=== PATIENT | female | born 1950 | race Caucasian/White ===

== ENCOUNTER → 2017-10-28 07:39 | Outpatient (CLI) | payer MEDICARE, OTHER, SELFPAY ==
[2017-10-28 10:38] LABS: Absolute Lymphocyte Count 1.99 X10^3/ul (0.83-4.51); Basophil# 0.07 X10^3/uL; Basophil% 1.5 % (0-1); Eosinophils% 6.3 % (0-5); Hematocrit 43.6 % (37-47); Hemoglobin 14.1 g/dl (12.0-15.0); Lymphocyte # 1.99 X10^3/ul (4.0); Lymphocyte % 41.9 % (19-41); Mean Corp Hgb Conc 32.3 g/gl (32-36); Mean Corpuscular Hgb 30.7 pg (27.0-32.0); Mean Platelet Vol. 11.1 fl (6.2-12.0); Monocyte# 0.42 X10^3/uL; Monocyte% 8.8 % (0-10); Neutrophil # 1.96 X10^3/uL (2.7-7.7); Neutrophil % 41.3 % (47-70); POSITIVE COUNT NO; POSITIVE DIFFERENTIAL NO; POSITIVE MORPHOLOGY NO; Platelet Count 229 K/mm3 (150-450); RBC Distribution Width CV 12.8 % (11.6-14.6); RBC Distribution Width SD 43.9 fl (35.1-43.9); Red Blood Count 4.59 M/mm3 (4.2-5.4); White Blood Count 4.8 K/mm3 (4.4-11.0)
[2017-10-28 10:48] LABS: Anion Gap 8 (5-15); BUN 24 mg/dL (7-18); Calcium,Total 9.2 mg/dL (8.5-10.1); Chloride 104 mmol/L (98-107); Cholesterol 222 mg/dL (200); Creatinine, Serum 0.89 mg/dL (0.55-1.02); EST Glomerular Filtration Rate 67 mL/min (>60); Est Glom Filt Rate - Afr Amer 81 mL/min (>60); Glucose 90 mg/dL (70-110); High Density Lipoprotein 62 mg/dL; Sodium Level 141 mmol/L (136-145); Thyroid Stim Hormone (TSH) 2.67 uIU/mL (0.358-3.74); Triglycerides 131 mg/dL; Very Low Density Lipoprotein 26 mg/dL (5-40)
[2017-10-28 11:10] LABS: Vitamin D,25 Hydroxy 23.1 ng/mL
== END ==
PROVIDERS: Family Provider Family Medicine; PCP Family Medicine; Visit Provider Family Medicine
DX: G25.0 Essential tremor (principal); E78.00 Pure hypercholesterolemia, unspecified; R53.83 Other fatigue; E55.9 Vitamin D deficiency, unspecified
CPT/HCPCS: 36415; 80048; 80061; 82306; 84443; 85025

== ENCOUNTER → 2019-08-09 | Outpatient (CLI) | payer MEDICARE, OTHER, SELFPAY ==
[2019-08-09 10:30] LABS: Absolute Lymphocyte Count 1.82 X10^3/uL (0.83-4.51); Absolute Neutrophil Count 1.9 X10^3/uL (2.0-7.7); Basophil# 0.06 X10^3/uL; Basophil% 1.4 % (0-1); Eosinophil# 0.24 X10^3/uL; Eosinophils% 5.5 % (0-5); Hematocrit 42.9 % (37-47); Hemoglobin 13.7 g/dL (12.0-15.0); Lymphocyte # 1.82 X10^3/ul (4.0); Lymphocyte % 41.6 % (19-41); Mean Corp Hgb Conc 31.9 g/dL (32-36); Mean Corpuscular Hgb 29.5 pg (27.0-32.0); Mean Corpuscular Volume 92.5 fL (81-99); Mean Platelet Vol. 10.8 fl (6.2-12.0); Monocyte# 0.33 X10^3/uL; Monocyte% 7.6 % (0-10); NRBC Flagged by Analyzer 0 % (0-5); Neutrophil # 1.91 X10^3/uL (2.7-7.7); Neutrophil % 43.7 % (47-70); Platelet Count 212 K/mm3 (150-450); RBC Distribution Width CV 12.4 % (11.6-14.6); RBC Distribution Width SD 42.4 fl (35.1-43.9); Red Blood Count 4.64 M/mm3 (4.2-5.4); White Blood Count 4.4 K/mm3 (4.4-11.0)
[2019-08-09 10:54] LABS: Anion Gap 6 (5-15); BUN 20 mg/dL (7-18); BUN/Creat Ratio 21.7 RATIO (10-20); Calcium,Total 8.8 mg/dL (8.5-10.1); Chloride 106 mmol/L (98-107); Cholesterol 211 mg/dL (200); Creatinine, Serum 0.92 mg/dL (0.55-1.02); EST Glomerular Filtration Rate 64 mL/min (>60); Est Glom Filt Rate - Afr Amer 77 mL/min (>60); Glucose 90 mg/dL (74-106); High Density Lipoprotein 54 mg/dL; Potassium 4.1 mmol/L (3.5-5.1); Sodium Level 143 mmol/L (136-145); Thyroid Stim Hormone (TSH) 3.01 uIU/mL (0.358-3.74); Triglycerides 128 mg/dL; Very Low Density Lipoprotein 26 mg/dL (5-40)
[2019-08-09 12:04] LABS: Vitamin D,25 Hydroxy 55.4 ng/mL (29.95-100.01)
== END | disposition home or self-care (01) ==
LOC: MTLAB 07:53
PROVIDERS: Family Provider Family Medicine; PCP Family Medicine; Referring Provider Family Medicine; Visit Provider Family Medicine
DX: E55.9 Vitamin D deficiency, unspecified (principal); E78.00 Pure hypercholesterolemia, unspecified; R53.83 Other fatigue
CPT/HCPCS: 36415; 80048; 80061; 82306; 84443; 85025

== ENCOUNTER → 2020-09-30 07:27 | Outpatient (CLI) | payer MEDICARE, OTHER, SELFPAY ==
[2020-09-30 10:05] LABS: Vitamin D,25 Hydroxy 43.4 ng/mL
[2020-09-30 10:09] LABS: AST(SGOT) 18 U/L (15-37); Alanine Aminotransfer ALT/SGPT 23 U/L (13-56); Albumin, Serum 3.6 g/dL (3.2-5.0); Alkaline Phosphatase 79 U/L (45-117); Anion Gap 2 (5-15); BUN 18 mg/dL (7-18); BUN/Creat Ratio 20.7 RATIO (10-20); Calcium,Total 9.1 mg/dL (8.5-10.1); Chloride 107 mmol/L (98-107); Cholesterol 234 mg/dL (200); Creatinine, Serum 0.87 mg/dL (0.55-1.02); EST Glomerular Filtration Rate 68 mL/min (>60); Est Glom Filt Rate - Afr Amer 82 mL/min (>60); Globulin 3.7 g/dL (2.2-4.2); Glucose 87 mg/dL (74-106); High Density Lipoprotein 53 mg/dL; Potassium 4.2 mmol/L (3.5-5.1); Protein, Total 7.3 g/dL (6.4-8.2); Sodium Level 141 mmol/L (136-145); Triglycerides 128 mg/dL; Very Low Density Lipoprotein 26 mg/dL (5-40)
== END ==
PROVIDERS: PCP Family Medicine; Referring Provider Family Medicine; Visit Provider Family Medicine
DX: E78.00 Pure hypercholesterolemia, unspecified (principal); M85.80 Other specified disorders of bone density and structure, unspecified site
CPT/HCPCS: 36415; 80053; 80061; 82306

== ENCOUNTER → 2020-10-07 10:45 | Outpatient (CLI) | payer MEDICARE, OTHER, SELFPAY ==
--- NOTE | 2020-10-07 10:50 | BD_ITS ---
STUDY: DUAL ENERGY X-RAY ABSORPTIOMETRY / DXA REASON FOR EXAM: Female, 70 years old. 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 COMPARISON: Comparison is made with prior study dated 04/02/2020. FINDINGS: Lumbar Spine (L1-L4): g/cm2 (1.184) / T-score (0.2) / Z-score (1.9) Findings are suggestive of normal bone density with a low fracture risk. Left Femur Total: g/cm2 (0.963) / T-score (-0.4) / Z-score (1.2) Left Femoral Neck: g/cm2 (0.914) / T-score (-0.9) / Z-score (0.9) Right Femur Total: g/cm2 (1.003) / T-score (0.0) / Z-score (1.5) Right Femoral Neck: g/cm2 (0.874) / T-score (-1.2) / Z-score (0.6) The T-Scores on the most recent prior examination were: Lumbar Spine (L1-L4): There has been improvement of bone density since the previous examination. Left Femur Total: which represents a worsening of 10.6%. Right Femur Total: which represents a worsening of 9.6%. BD/Dexa Bone Density Study IMPRESSION: The patient is considered osteopenic as outlined below according to World Franklin Organization (WHO) criteria with a low fracture risk. There has been worsening of bone density since the previous examination. Reference Information: The T-score is the number of standard deviations above or below the standard which is normal for young adults at their peak bone mineral density. The World Health Organization (WHO) interprets the T-scores as follows: Above -1 Normal bone density Between -1 and -2.5 Osteopenia Equal to / or below -2.5 Osteoporosis As a practical clinical guideline, osteopenia may be graded as follows: Mild -1 through -1.5 Moderate -1.6 through -2.0 Severe -2.1 through -2.4 The Z-score is the number of standard deviations above or below age-matched controls. A Z-score of less than -1.5 would be considered abnormal. References: 1. NIH Osteoporosis and Related Bone Diseases www osteo.org 2. International Society for Clinical Densitometry www iscd.org 3. National Osteoporosis Foundation www nof.org Electronically Signed: Randy Marie, at 14:42 EST , Service support ,
== END ==
PROVIDERS: PCP Family Medicine; Referring Provider Family Medicine; Visit Provider Family Medicine
DX: M85.80 Other specified disorders of bone density and structure, unspecified site (principal); Z78.0 Asymptomatic menopausal state
CPT/HCPCS: 77080

== ENCOUNTER → 2021-06-01 07:30 | Outpatient (CLI) | payer MEDICARE, SELFPAY ==
[2021-06-01 10:45] LABS: AST(SGOT) 26 U/L (15-37); Alanine Aminotransfer ALT/SGPT 21 U/L (13-56); Albumin, Serum 3.5 g/dL (3.2-5.0); Alkaline Phosphatase 78 U/L (45-117); Anion Gap 5 (5-15); BUN 17 mg/dL (7-18); BUN/Creat Ratio 19.4 RATIO (10-20); Chloride 107 mmol/L (98-107); Cholesterol 217 mg/dL (200); Creatinine, Serum 0.88 mg/dL (0.55-1.02); EST Glomerular Filtration Rate 67 mL/min (>60); Est Glom Filt Rate - Afr Amer 81 mL/min (>60); Globulin 3.5 g/dL (2.2-4.2); Glucose 86 mg/dL (74-106); High Density Lipoprotein 54 mg/dL; Potassium 3.9 mmol/L (3.5-5.1); Sodium Level 141 mmol/L (136-145); Triglycerides 139 mg/dL; Very Low Density Lipoprotein 28 mg/dL (5-40)
== END ==
PROVIDERS: PCP Family Medicine; Referring Provider Family Medicine; Visit Provider Family Medicine
DX: E78.00 Pure hypercholesterolemia, unspecified (principal)
CPT/HCPCS: 36415; 80053; 80061

== ENCOUNTER → 2021-08-24 10:21 | Outpatient (CLI) | payer MEDICARE, SELFPAY ==
--- NOTE | 2021-08-24 10:25 | RAD_ITS ---
STUDY: X-RAY CHEST REASON FOR EXAM: Female, 71 years old. Cough TECHNIQUE: PA and lateral views of the chest. COMPARISON: 07/04/2014 FINDINGS: The lungs are clear and expanded. There is no demonstrated pleural abnormality. Normal size heart. Normal mediastinum and noa. Normal visualized pulmonary arteries. Normal visualized aortic arch and descending thoracic aorta. Normal visualized thoracic spine. Normal visualized ribs, clavicles, and shoulders. There is no demonstrated abnormality of the visualized soft tissue structures of the upper abdomen. RAD/Chest PA and Lateral IMPRESSION: Normal x-ray examination of the chest. Electronically Signed: Sukhjinder Leonard MD at 16:50 EDT Tel , Service support ,
== END ==
PROVIDERS: PCP Family Medicine; Referring Provider Family Medicine; Visit Provider Family Medicine
DX: K21.9 Gastro-esophageal reflux disease without esophagitis (principal)
CPT/HCPCS: 71046

== ENCOUNTER → 2021-10-01 07:01 | Outpatient (CLI) | payer MEDICARE, SELFPAY ==
[2021-10-01 10:32] LABS: Absolute Lymphocyte Count 1.96 X10^3/uL (0.83-4.51); Absolute Neutrophil Count 2.4 X10^3/uL (2.0-7.7); Basophil# 0.06 X10^3/uL; Basophil% 1.1 % (0-1); Eosinophil# 0.32 X10^3/uL; Hematocrit 43.4 % (37-47); Lymphocyte # 1.96 X10^3/ul (0.83-4.51); Lymphocyte % 36.6 % (19-41); Mean Corp Hgb Conc 32.3 g/dL (32-36); Mean Corpuscular Hgb 29.9 pg (27.0-32.0); Mean Corpuscular Volume 92.5 fL (81-99); Mean Platelet Vol. 10.8 fl (6.2-12.0); Monocyte# 0.64 X10^3/uL; Monocyte% 11.9 % (0-10); NRBC Flagged by Analyzer 0 % (0-5); Neutrophil # 2.36 X10^3/uL (2.7-7.7); Platelet Count 238 K/mm3 (150-450); RBC Distribution Width CV 12.2 % (11.6-14.6); RBC Distribution Width SD 41.7 fl (35.1-43.9); Red Blood Count 4.69 M/mm3 (4.2-5.4); White Blood Count 5.4 K/mm3 (4.4-11.0)
[2021-10-01 10:55] LABS: ALB/GLOB Ratio 0.9 RATIO (0.9-2.4); AST(SGOT) 24 U/L (15-37); Alanine Aminotransfer ALT/SGPT 26 U/L (13-56); Albumin, Serum 3.4 g/dL (3.2-5.0); Alkaline Phosphatase 84 U/L (45-117); Anion Gap 7 (5-15); BUN 19 mg/dL (7-18); BUN/Creat Ratio 20.2 RATIO (10-20); Calcium,Total 9.2 mg/dL (8.5-10.1); Chloride 105 mmol/L (98-107); Cholesterol 215 mg/dL (200); Creatinine, Serum 0.94 mg/dL (0.55-1.02); EST Glomerular Filtration Rate 62 mL/min (>60); Est Glom Filt Rate - Afr Amer 75 mL/min (>60); Globulin 3.9 g/dL (2.2-4.2); Glucose 89 mg/dL (74-106); High Density Lipoprotein 52 mg/dL; Potassium 4.2 mmol/L (3.5-5.1); Protein, Total 7.3 g/dL (6.4-8.2); Sodium Level 141 mmol/L (136-145); Thyroid Stim Hormone (TSH) 2.25 uIU/mL (0.358-3.74); Triglycerides 117 mg/dL; Very Low Density Lipoprotein 23 mg/dL (5-40)
== END ==
PROVIDERS: Referring Provider Family Medicine; Visit Provider Family Medicine
DX: E78.00 Pure hypercholesterolemia, unspecified (principal)
CPT/HCPCS: 36415; 80053; 80061; 84443; 85025

== ENCOUNTER → 2021-10-14 17:40 | Outpatient (CLI) | payer MEDICARE, SELFPAY | PROVIDERS: Visit Provider Nurse Practitioner Family | DX: B37.3 Candidiasis of vulva and vagina (principal) | CPT/HCPCS: 87070; 87205 ==

== ENCOUNTER 2021-11-25 18:27 | Outpatient (CLI) | payer MEDICARE, SELFPAY | END 2021-11-25 23:59 | disposition short-term general hospital (02) | PROVIDERS: Referring Provider Nurse Practitioner Family; Visit Provider Nurse Practitioner Family | DX: U07.1 COVID-19 (principal) | CPT/HCPCS: 87635; U0003; U0005 ==

== ENCOUNTER 2022-02-16 17:40 | Outpatient (CLI) | payer MEDICARE, SELFPAY | END 2022-02-16 23:59 | disposition home or self-care (01) | PROVIDERS: Visit Provider Family Medicine | DX: B34.9 Viral infection, unspecified (principal) | CPT/HCPCS: 87635; U0003; U0005 ==

== ENCOUNTER → 2024-01-03 | Outpatient (CLI) | payer MEDICARE, SELFPAY ==
--- NOTE | 2024-01-03 13:08 | ECHOD_ITS ---
Reason For Study: Abnormal EKG Procedure This was a 2D Doppler, Color Flow transthoracic echocardiogram. Exam performed in department. Left Ventricle Normal LV size. Left ventricular systolic function is normal. The estimated ejection fraction is 65 %. Normal diastology for age. No regional wall motion abnormalities noted. Right Ventricle Normal RV size. Normal systolic function. Atria The left and right atria are normal. Mitral Valve The mitral valve is structurally normal. No prolapse or stenosis seen. Trivial mitral valve insufficiency. Tricuspid Valve Normal tricuspid valve. Trivial tricuspid valve insufficiency. Unable to estimate RV systolic pressure due to insufficient tricuspid regurgitant envelope. Aortic Valve Trisinus/trileaflet aortic valve. Pulmonic Valve Normal pulmonic valve. Mild (1+) pulmonic valve insufficiency. Great Vessels Normal aortic root. Pericardium/Pleural No pericardial effusion. MMode/2D Measurements & Calculations LVIDd: 4.3 cm IVSd: 0.92 cm Ao root diam: 3.1 cm LVIDs: 2.7 cm LVPWd: 0.94 cm LA dimension: 3.8 cm RVDd: 3.2 cm FS: 37.2 % LAV(MOD-bp): 40.0 ml LVAd ap4: 21.5 cm2 SV(MOD-sp4): 32.6 ml LAV(MOD-bp) Indexed: 23.8 ml/m2 LVLd ap4: 6.9 cm LAV(MOD-sp2): 40.0 ml EDV(MOD-sp4): 55.0 ml LAV(MOD-sp4): 37.4 ml EDV(sp4-el): 56.8 ml LVAs ap4: 12.0 cm2 LVLs ap4: 5.5 cm ESV(MOD-sp4): 22.4 ml ESV(sp4-el): 22.1 ml EF(MOD-sp4): 59.3 % EF(sp4-el): 61.1 % SV(sp4-el): 34.7 ml LA A4 area: 14.7 cm2 RA A4 area: 12.2 cm2 TAPSE: 1.9 cm Time Measurements MV dec time: 0.20 sec Doppler Measurements & Calculations MV E max anderson: 73.9 cm/sec Lat Peak E' Anderson: 7.6 cm/sec Med Peak E' Anderson: 6.9 cm/sec MV A max anderson: 80.7 cm/sec E/E' lat: 9.8 E/E' med: 10.6 MV E/A: 0.92 MV V2 max: 121.4 cm/sec MV P1/2t max anderson: 99.0 cm/sec Ao V2 max: 121.6 cm/sec MV max P.9 mmHg MV P1/2t: 77.7 msec Ao max P.9 mmHg MV V2 mean: 59.9 cm/sec MV dec slope: 373.3 cm/sec2 Ao V2 mean: 81.3 cm/sec MV mean P.8 mmHg Ao mean P.1 mmHg MV V2 VTI: 34.1 cm MVA(P1/2t): 2.8 cm2 Ao V2 VTI: 30.0 cm AV (velocity ratio): 0.77 LV V1 max: 93.3 cm/sec PA V2 max: 82.1 cm/sec LV V1 max P.5 mmHg LV V1 mean P.8 mmHg LV V1 mean: 61.4 cm/sec LV V1 VTI: 23.1 cm ECHO/Echo Complete Interpretation Summary The estimated ejection fraction is 65 %. Normal diastology for age. Mild (1+) pulmonic valve insufficiency. Compared to prior study, there is no significant change. Ordering Physician: Isabela Perez Referring Physician: Jamie Montez M.D. Performed By: Houston Ledezma RCS
== END | disposition home or self-care (01) ==
PROVIDERS: Referring Provider Internal Medicine Cardiovascular Disease; Visit Provider Internal Medicine Cardiovascular Disease
DX: R94.31 Abnormal electrocardiogram [ECG] [EKG] (principal); R07.9 Chest pain, unspecified
CPT/HCPCS: 93306

== ENCOUNTER 2024-06-02 12:47 | Emergency (ER) | payer MEDICARE, SELFPAY ==
[2024-06-02 12:48] VITALS: BP 164/64; PULSE 55; RESP 16; TEMP 36.1; O2SAT 100; BMI 28.0
--- NOTE | 2024-06-02 13:05 | RAD_ITS ---
HISTORY: sciatica. TECHNIQUE: XR Spine Lumbar 2 or 3 Views. COMPARISON: CT 08/19/2017. FINDINGS: VERTEBRAE: Vertebral body heights preserved. Degenerative changes of the posterior elements. ALIGNMENT: No significant anterior or posterior subluxation. Chronic mild dextroscoliosis INTERVERTEBRAL DISCS: Degenerative changes with intervertebral disc space narrowing at multiple levels. RAD/Lumbar Spine 2 or 3 Views IMPRESSION: No acute fracture or dislocation identified in the lumbar spine. Multilevel degenerative change. Electronically Signed: Nichole Iyer MD at 13:55 EDT ,
--- NOTE | 2024-06-02 13:05 | RAD_ITS ---
HISTORY: pain. TECHNIQUE: XR Knee Complete 4 Views or More. COMPARISON: 08/25/2009. FINDINGS: BONES : No acute fracture identified. Mineralization unremarkable. Small degenerative osteophytes. JOINTS: No dislocation. Mild joint effusion. RAD/Knee 4 or More Views IMPRESSION: No acute fracture or dislocation identified right knee. Mild degenerative change and joint effusion. Electronically Signed: Nichole Iyer MD at 13:50 EDT ,
--- NOTE | 2024-06-02 13:06 | EDS_ITS ---
HPI History of Present Illness Chief Complaint: Lower Extremity Injury Narrative Narrative: 73-year-old female presents with right knee and thigh pain posteriorly that she has had for the last few weeks. She relates history that initially, she was driving, and extended her foot/plantar flexed at and began having pain in the back of her knee. She saw primary care provider, who examined her knee, but did not think she had a fracture but probable muscle or tendon strain. She states t hat she saw her chiropractor and there was a raised sore area on her medial proximal tibia that was sore and swollen, but had gone down now. She is having continued pain that is more in her posterior thigh and more lateral that is sometimes worse with movement. No fevers or chills, no nausea or vomiting, no saddle anesthesia, no loss of bowel or bladder. She went to urgent care today and was sent to the emergency department for an x-ray of her right knee. She states that the primary care provider, Dr. Valadez, also suggested that if her pain worsen that she should have an x-ray. She denies any back pain. Advil makes it better. She presents from urgent care stating that she needs an x-ray of her right knee. [facility] Medical History Hx of melanoma of skin Abnormal EKG Memory disturbance Dryness of both ear canals Postnasal drip Intramural leiomyoma of uterus Actinic keratosis Osteopenia of multiple sites GERD (gastroesophageal reflux disease) Diffuse cystic mastopathy Chest pain Essential tremor Dyslipidemia Home Medications ?Medication ?Instructions ?Recorded ?Last Taken ?Type omega-3 fatty acids 300 mg capsule 1,000 mg PO QHS 07/04/14 Unknown History (Fish Oil) cholecalciferol (vitamin D3) 25 1,000 unit PO QHS 07/08/15 Unknown History mcg (1,000 unit) tablet (Vitamin D3) propranolol 80 mg capsule,24 80 mg PO QHS 11/03/23 Unknown History hr,extended release famotidine 10 mg tablet (Pepcid AC) 10 mg PO DAILY PRN 11/30/23 Unknown History Allergy/AdvReac Type Severity Reaction Status Date / Time No Known Allergies Allergy Verified 06/02/24 12:48 Family History Father Colon cancer Surgical History Hx of unilateral oophorectomy Hx of tubal ligation Social History Smoking Status: Never smoker alcohol intake: never substance use type: does not use caffeine: Yes Type: coffee Number of servings: 2 ROS ROS ED ROS Narrative Constitutional: No fever, no chills. HEENT: No sore throat. No neck pain. No loss of vision. No rhinorrhea. Cardiovascular: No chest pain. No palpitations. No pedal edema. Respiratory: No cough, no shortness of breath. Abdominal: No abdominal pain. No nausea. No vomiting. Genitourinary: No dysuria. No hematuria. Musculoskeletal: No myalgias. Right knee pain, right posterior thigh pain. Neurologic: No headaches. No dizziness. No lightheadedness. Skin: No rash. No change in color. Psychiatric: No depression. No anxiety. EXAM Physical Exam Narrative Exam Narrative: Afebrile. Vital signs noted. HEENT: Normocephalic. Atraumatic. PERRL, EOMI. Neck soft and supple. No point tenderness or step off. Cardiovascular: Regular rate and rhythm. No murmurs, rubs, or gallops appreciated. Respiratory: No tachypnea. Lungs clear to auscultation bilaterally. Gastrointestinal: Abdomen soft, nontender, with normoactive bowel sounds. No rebound or guarding. Neurological: Awake. Alert. Nonfocal, nonlateralizing. Straight leg raising negative bilaterally. Neurovascular intact right lower extremity with palpable dorsalis pedis pulse. Skin: No rash. Normal color. No pallor. Musculoskeletal: No pedal edema. Full range of motion extremities. Flexion extension right knee intact. Able to raise leg off bed without difficulty. Mild tenderness to palpation right sciatic notch. Const Vital Signs: 06/02/24 12:48 Temperature 96.9 F L Temperature Source Temporal Pulse Rate 55 L Respiratory Rate 16 Blood Pressure 164/64 H Blood Pressure Mean 97 Pulse Ox 100 Oxygen Delivery Method Room Air MDM MDM MDM Narrative Medical decision making narrative: The differential diagnosis is sciatica versus spinal stenosis. I have low suspicion for cauda equina because there are no red flag symptoms and history and physical does not support this. Additionally, I have low suspicion for deep venous thrombosis as there is no overt swelling, erythema, or risk factors. I discussed with her the diagnosis of sciatica and continued use of anti- inflammatories. I will obtain a right knee x-ray to rule out any fracture, and I will also add lumbar spine x-rays to look for DJD. I do not feel that she needs emergent MRI. X-rays will be done for baseline in the event that she needs physical therapy at future outpatient imaging. Of note, on examination, initially she had her telephone in her right back pocket. I do feel that this may be a cause of her symptoms and sciatica. She was told not to keep it in her back pocket on the right or the left as this may be aggravating her sciatic nerve. X-rays of the right knee and 4 views interpreted by myself independently shows small joint effusion but no evidence of acute fracture. There are mild degenerative changes. I reviewed the radiology report which confirms my independent interpretation. X-rays of the lumbar spine interpreted by myself independently shows no evidence of acute fracture. There is evidence of degenerative joint disease/degenerative disc disease. I reviewed the radiology report which also confirms my independent interpretation. At this point in time, I feel she be discharged to continue her [id number] medications. She was told she may need out patient imaging of her back or even physical therapy as I do think that she has more of a sciatica. She was told not to put her phone in her back pockets anymore. Return instructions to the emergency department were reviewed. Disposition is discharged home in stable condition. History & Record Review Discussion w/independent historian: Patient Radiography Diagnostic Testing: Clinical Impression(s) from Imaging Studies Knee X-Ray 06/02/24 13:05 IMPRESSION: No acute fracture or dislocation identified right knee. Mild degenerative change and joint effusion. Electronically Signed: Nichole Iyer MD at 13:50 EDT , Lumbar Spine X-Ray 06/02/24 13:05 IMPRESSION: No acute fracture or dislocation identified in the lumbar spine. Multilevel degenerative change. Electronically Signed: Nichole Iyer MD at 13:55 EDT , Discharge Plan Triage Chief Complaint: Lower Extremity Injury ED Provider: Joseph Madrid Dx/Rx/DC Orders Clinical Impression: Right knee pain, Sciatica, Degenerative joint disease (DJD) of lumbar spine Instructions: ED Degenerative Disk Disease, ED Sciatica Prescriptions: No Action propranolol 80 mg capsule,extended release 24 hr 80 mg PO QHS famotidine [Pepcid AC] 10 mg tablet 10 mg PO DAILY PRN omega-3 fatty acids [Fish Oil] 300 MG capsule 1,000 mg PO QHS Patient Comments: SUPPLIMENT LOWERS CHOLESTEROL cholecalciferol (vitamin D3) [Vitamin D3] 1,000 UNIT tablet 1,000 unit PO QHS Primary Care Provider: Latrice Rizvi Referrals: Latrice Rizvi MD [Primary Care Provider] - As soon as possible Care Physician,No Primary [Non-Staff] - Activity Restrictions/Additional Instructions: Continue your [id number] medications as needed for pain. Follow-up with your primary care provider. You may need physical therapy for your sciatica. Return with fever, loss of bowel or bladder, new or worsening symptoms. Print Language: Tristanian Disposition Disposition: Home, Self Care
== END 2024-06-02 15:07 | disposition home or self-care (01) ==
PROVIDERS: Emergency Provider Emergency Medicine; PCP Family Medicine; Visit Provider Emergency Medicine
DX: M25.561 Pain in right knee (principal); M47.816 Spondylosis without myelopathy or radiculopathy, lumbar region
CPT/HCPCS: 72100; 73564; 99282

== ENCOUNTER 2024-06-29 12:00 | Outpatient (RCR) | payer MEDICARE, SELFPAY ==
--- NOTE | 2024-08-14 10:00 | HP.PT.NRP ---
Patient Information Patient Information: DEDRICK BARRIENTOS was seen in my office for initial evaluation on 06/19/24. The following Plan of Care was established for this patient: POC Established Initial Frequency: 1x/Week Initial Duration: 2 Weeks Anticipated Interventions Patient/Client Instruction: Educate patient on: Condition and Plan of Care For the Purpose of:: To improve self management Therapeutic Exercise to Include: Strength training, Flexibilty training and Dynamic Lumbar Stabilization For the Purpose of:: To decrease pain, To improve muscle performance and motor function and To improve ability to perform ADL's Last Seen Last Seen: This patient was last seen in our office . Pertinent comments regarding their Physical therapy will appear below: Pt was treated for R leg pain for 2 PT visits through the date of 06/29/24. Pt has not returned through todays date and is discontinued at this time. At this point I will be discontinuing this patient from physical therapy. I would be happy to see this patient again in the future if found appropriate by the physician. Thank you! Cuco Barrientos, PT, ATC Balance/Gait/Functional tests Balance/Special Test Scores Lower Extremity Functional Score: 39
== END 2024-06-29 19:00 | disposition home or self-care (01) ==
LOC: PT 12:00
PROVIDERS: PCP Family Medicine; Visit Provider Family Medicine
DX: M79.604 Pain in right leg (principal)
CPT/HCPCS: 97110; 97161

== ENCOUNTER 2024-08-15 06:20 | Day surgery (SDC) | payer MEDICARE, SELFPAY ==
[2024-08-15] VITALS (9 sets, daily range): BP systolic 101–123; BP diastolic 48–59; PULSE 56–60; RESP 16–18; TEMP 36.2–36.7; O2SAT 94–100; BMI 26.7
--- NOTE | 2024-08-15 | COLBX_PTH ---
PATIENT: DEDRICK BARRIENTOS LOC: EN U#:[id number] AGE/SX: 74/F ROOM: RE08/15/[address]: Dr. Srini Ojeda MD : [id number] BED: DIS: 08/15/2024 SPEC #: [id number] RECD: 08/15/24 12:21 STATUS: DEWAYNE ENGBre #: [id number] RUSTAM: 08/15/24 00:[address]: Srini Ojeda DEPT: SURGICAL PATHOLOGY RECD BY: Franlkyn Diaz ENTERED: 08/15/24 12:22 SP TYPE: COLON BX OTHR DR: Latrice Rizvi MD Tissues: Rectum, NOS Procedures: Surgery Specimen Level IV HEADER OPERATION: Colonoscopy with biopsy PRE-OP DIAGNOSIS: Screening and family history of colon cancer TISSUE SUBMITTED: Rectal mucosa biopsy MICROSCOPIC DIAGNOSIS Rectal mucosa, biopsy: A fragment of colonic mucosa, no pathologic diagnosis. 08/16/2024 MICROSCOPIC DESCRIPTION Slides are reviewed. GROSS DESCRIPTION Received in fixative is one container labeled with the patient's name and designated Rectal mucosa biopsy. The specimen consists of one irregular fragment of light brady soft tissue that measures 0.3 x 0.3 x 0.1 cm. The specimen is totally submitted in one cassette. 08/15/2024 TC:4 CPT:69488
[2024-08-15] MEDS: Lactated Ringers 1,000 ML 15 ML IV (06:45)
--- NOTE | 2024-08-15 07:20 | PCM.PRE.AN2 ---
ASA Classification* ASA Classification ASA Classification: 2 Assessment & Plan Anesthesia* Anesthesia Assessment Anesthesia Assessment: Discussed sedation and/or anesthesia options, risks, benefits, and alternatives with patient/parents/legal guardian/POA. Questions invited. The patient/parents/legal guardian/POA seems to understand and agrees to proceed with anesthesia plan. Reviewed the physical assessment, medical history, allergy history and patient home medications list prior to surgery/procedure/anesthetic and documented any changes. Performed airway and anesthesia risk assessments. Anesthesia Type Anesthesia Type: MAC Anesthesia Focused Assessment* Temperature: 98.0 F Pulse Rate: 60 Blood Pressure: 104/55 Respiratory Rate: 18 Pulse Ox: 100 Airway Assessment Mouth opens: >3 cm Mallampati Score: II Focused Labs Anesthesia Preop lab: CBC WBC 5.4 K/mm3 (4.4-11.0) 10/01/21 07:04 RBC 4.69 M/mm3 (4.2-5.4) 10/01/21 07:04 Hgb 14.0 g/dL (12.0-15.0) 10/01/21 07:04 Hct 43.4 % (37-47) 10/01/21 07:04 Plt Count 238 K/mm3 (150-450) 10/01/21 07:04 CHEMISTRY Potassium 4.2 mmol/L (3.5-5.1) 10/01/21 07:04 Sodium 141 mmol/L (136-145) 10/01/21 07:04 BUN 19 mg/dL (7-18) H 10/01/21 07:04 Creatinine 0.94 mg/dL (0.55-1.02) 10/01/21 07:04 Glucose 89 mg/dL (74-106) 10/01/21 07:04 TSH 2.25 uIU/mL (0.358-3.74) 10/01/21 07:04 COAG Pre-Assessment Diagnosis/Proposed Procedure Planned Operative Procedure(s): COLONOSCOPY Anesthesia History Anesthesia History - hospital education coordinator: Anesthesia History - hospital education coordinator Hx Hospitalization No 08/10/24 11:57 Any Problems With Anesthesia Yes: TONSILLECTOMY - AGE 7 ( 08/10/24 11:57 ALMOST LOST HER) FELT D/T ETHER - NO PROBLEMS SINCE Cholinesterase deficiency No 08/10/24 11:57 You/Your Family Experience No 08/10/24 11:57 fever (hyperthermia) with Relationship Recent Exposure to Contagious No 08/15/24 06:48 Disease Does patient have nerve No 08/10/24 11:57 stimulator Patient instructed to have device shut off --Does patient have Pacemaker No 08/15/24 06:48 or ICD? When Was Last Pacemaker Check QUESTION #4 FULL TEXT: You/Your Family Experience fever (hyperthermia) with Anesthesia Last Oral Intake Last Oral intake: Last Oral Intake NPO since 20:30 08/15/24 06:48 Meds taken in AM with sips of No 08/15/24 06:48 water? Meds patient instructed to take am of surgery PONV PONV - hospital education coordinator: PONV - hospital education coordinator Female Yes 08/10/24 11:57 HX of Motion Sickness No 08/10/24 11:57 HX of N/V After Surgery No 08/10/24 11:57 Non-Smoker Yes 08/10/24 11:57 Duration of Surgery greater No 08/10/24 11:57 than 60 minutes Number of Risk Factors 2 08/10/24 11:57 PONV Score Moderate Risk 08/10/24 11:57 Height & Weight Height & Weight: Anesthesia: Height & Weight Height 5 ft 2 in 08/15/24 06:48 Weight: 66.4 kg 08/15/24 06:48 Body Mass Index (BMI) 26.7 08/15/24 06:48 Respiratory Assessment Respiratory Assessment - hospital education coordinator: Respiratory Tract Infection Hx - hospital education coordinator Hx Respiratory Tract Infection No 08/10/24 11:57 STOP Sleep Apnea STOP Sleep Apnea - hospital education coordinator: STOP Sleep Apnea - hospital education coordinator Hx Hypertension No 08/10/24 11:57 Hx Sleep Apnea No 08/10/24 11:57 CPAP No 08/10/24 11:57 BIPAP No 08/10/24 11:57 Do you snore loudly (louder No 08/10/24 11:57 than talking or can be heard Do you often feel tired/ No 08/10/24 11:57 fatigued/ sleepy during daytime? Has anyone observed you stop No 08/10/24 11:57 breathing during sleep? STOP Results Negative 08/10/24 11:57 QUESTION #5 FULL TEXT : Do you snore loudly (louder than talking or can be heard through closed doors)? 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 Specify any problems Hx of Preganancy in last 3 No 08/10/24 11:57 Months Nurse Filling Out Transfusion VCHRISTIN 08/10/24 11:57 & Questions: Date: 08/10/24 08/10/24 11:57 Time: 11:59 08/10/24 11:57 Patient unable to answer at this time (ie. confused, unrespo /Reproduction History /Reproductive History - hospital education coordinator: /Reproductive Hx- hospital education coordinator Hx Now Gestational Age (in weeks): EDC: Hx Hx Para Hx Section SAB Active Medications Active Medications: Current Medications Generic Name Dose Route Start Last Admin Trade Name Freq PRN Reason Stop Dose Admin Lactated Ringer's 1,000 mls @ 15 mls/hr 08/15/24 06:45 08/15/24 06:45 IV 15 mls/hr .Q48H JUSTUS Administration PFSH Medical History (Updated 08/10/24 @ 11:57 by Nichole Griffiths) Wears glasses Post-menopausal Cancer Back pain Gastric reflux Non-smoker Cardiology follow-up encounter History of echocardiogram History of stress test History of basal cell cancer Hx of melanoma of skin Abnormal EKG Memory disturbance Dryness of both ear canals Postnasal drip Intramural leiomyoma of uterus Actinic keratosis Osteopenia of multiple sites GERD (gastroesophageal reflux disease) Diffuse cystic mastopathy Chest pain Essential tremor Dyslipidemia Home Medications ?Medication ?Instructions ?Recorded ?Last Taken ?Type omega-3 fatty acids 300 mg capsule 1,000 mg PO QHS 07/04/08/08/24 History (Fish Oil) cholecalciferol (vitamin D3) 25 1,000 unit PO QHS 07/08/15 Unknown History mcg (1,000 unit) tablet (Vitamin D3) propranolol 80 mg capsule,24 80 mg PO QHS 11/03/23 08/14/24 20:00 History hr,extended release famotidine 10 mg tablet (Pepcid AC) 10 mg PO DAILY PRN GERD 11/30/23 Unknown History ascorbic acid (vitamin C) 1,000 mg 1 g PO DAILY 08/10/24 Unknown History tablet (C-1000) loratadine 10 mg tablet (Allergy 10 mg PO DAILY PRN ALLERGIES 08/10/24 Unknown History Relief (loratadine)) Allergy/AdvReac Type Severity Reaction Status Date / Time No Known Allergies Allergy Verified 08/15/24 06:48 Family History Father Colon cancer Surgical History (Updated 08/10/24 @ 11:57 by Nichole Griffiths) Hx of melanoma excision Hx of ovarian cystectomy Hx of tonsillectomy Hx of colonoscopy Hx of vein stripping Hx of unilateral oophorectomy Hx of tubal ligation Social History Smoking Status: Never smoker alcohol intake: never substance use type: does not use caffeine: Yes Type: coffee Number of servings: 2 Review of Systems (Anesthesia) ROS Narrative System reviewed and no additional complaints, except as documented.
--- NOTE | 2024-08-15 07:45 | HP.PCM_ITS ---
History and Physical Date of Admission: 08/15/24 Date of Service: 05/30/24 MR#: [id number] Acct: [id number] Name: DEDRICK BARRIENTOS Rep #: [id number] : 1950 Provider: Dr. Srini Ojeda MD Age/Sex: 73/F Location: [facility] Status: Signed Intake Vital Signs 03/14/2408:54 05/30/2414:15 Height 5 ft 2 in 5 ft 2 in Weight: 155 lb BMI 28.3 BP 132/64 H Blood Pressure Location Rt brachial Position Sitting Respiration 18 Pulse 55 L Pulse Source Monitor Temp 97.3 F L Temp Source Temporal Pulse Oximetry (%) 98 Oxygen Delivery Method room air Intake Visit Reasons: SCREENING COLONOSCOPY Chief Complaint: screening colonoscopy Is patient in pain?: No Allergies No Known Allergies Allergy (Unverified 05/30/24 14:16) Medications ?Medication ?Instructions ?Recorded ?Confirmed ?Type omega-3 fatty acids 300 mg capsule 1,000 mg PO QHS 07/04/14 05/30/24 History (Fish Oil) cholecalciferol (vitamin D3) 25 1,000 unit PO QHS 07/08/15 05/30/24 History mcg (1,000 unit) tablet (Vitamin D3) propranolol 80 mg capsule,24 80 mg PO QHS 11/03/23 05/30/24 History hr,extended release famotidine 10 mg tablet (Pepcid AC) 10 mg PO DAILY PRN 11/30/23 05/30/24 History Have you fallen in the past year?: No PFSH Medical History Hx of melanoma of skin Abnormal EKG Memory disturbance Dryness of both ear canals Postnasal drip Intramural leiomyoma of uterus Actinic keratosis Osteopenia of multiple sites GERD (gastroesophageal reflux disease) Diffuse cystic mastopathy Chest pain Essential tremor Dyslipidemia Surgical History Hx of unilateral oophorectomy Hx of tubal ligation Family History (Updated 05/30/24 @ 14:15 by Luz Corcoran LPN) Father Colon cancer Social History Smoking Status: Never smoker alcohol intake: never substance use type: does not use caffeine: Yes Type: coffee Number of servings: 2 HPI HPI HPI: Patient is a 73-year-old female who presents for need to schedule screening colonoscopy secondary to family history of colon cancer. They are referred for surgical consultation from Dr. Rizvi. Patient has had prior colonoscopy she estimates 5.5 years ago as her last one. She states this was with Dr. Posadas. With this or any of her previous exams, she denies any history of polyps being found or other abnormal findings apart from a single hemorrhoid. She shares that this hemorrhoid dates back to when she had her children. She denies any recent bleeding, however, she acknowledges that there is been some itching as recent as last week. She otherwise denies any additional discomfort. They describe their bowel habits as normal. They have approximately 1 bowel movements per day and spend roughly 2 minutes on the toilet without significant straining. They have not noticed recent bleeding or dark stools. They do not regularly take fiber supplements. They do consume significant fiber in their regular diet and drink plenty of water. Patient, as above, has a family history of colon cancer in her father which she states was diagnosed in his early 60s. She goes on to share that this was actually a rectal cancer that required a colostomy but he ultimately did well following this diagnosis and did not pass until his early 90s The patient's weight is stable. The patient is not prescribed anticoagulants/blood thinners. Relevant prior abdominal surgical history includes: Oophorectomy Patient does have a significant history of GERD/heartburn. However, she states that frequency of symptoms is only sometimes. She goes on to describe how she will take Pepcid generally every other day, but states she has not taken it for the last 3 days because she has not needed. She does mention that she actively avoid spice or red sauces. Outside of the above patient has a history of melanoma excision from her left upper extremity through Dr. Mcmullen. She immediately notes that there is a purple lesion directly inside of her excision scar but states that this has been evaluated and stable for the last 22 years. 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 ROS General General: No weight change, appetite, fatigue, colon cancer, breast cancer or weakness HEENT HEENT: Yes eye surgery; No difficulty swallowing, eye injury, swollen glands or hoarseness Additional Details: cataracts removed Endo Endocrine: No thyroid disease, diabetes mellitus, thyroid cancer, Hair loss, heat intolerance or cold intolerance Skin Skin: Yes changing moles; No rash Musc Musculoskeletal: Yes back problems; No arthritis, rheumatoid arthritis, gout or joint pain Cardio Cardiovascular: No murmur, pacemaker, heart disease, atrial fibrillation, high blood pressure, heart attack, heart stent, palpitations, shortness of breat with exertion or chest pain Psych Psychiatric: No depression, anxiety or hearing voices Resp Respiratory: No shortness of breath, No sleep apnea, No cough, No COPD, No asthma, No emphysema and No wheezing Gastro Gastrointestinal: No abdominal pain, No nausea or vomiting, No diarrhea, No constipation, No blood in stool, Yes acid reflux, Yes hemorrhoids, No ulcers, No gallbladder problem and No black,tarry stools Tushar Hematologic: Yes blood thinners, No blood disorders, No bleeding, No anemia and No blood clots Additional Details: fish oil Neuro Neurologic: No numbness, No tingling and No weakness Exam Const General: cooperative and no acute distress Orientation: alert, awake and oriented x3 Other: Friendly Resp Effort & Inspection: normal respiratory effort GI Other: Nondistended, soft, no visible herniation. Nontender to palpation x 4 quadrants Assessment and Plan Assessment and Plan (1) Screening for colon cancer: Status: Acute Comment: Patient is a 73-year-old female who has been on a tighter interval screening regimen for colon cancer since the diagnosis of colon cancer (actually rectal cancer) and her father was made in his early 60s. She presents today for consideration of a repeat colonoscopy but denies any history of abnormal findings with her previous screening exams. Furthermore, she confirms that her bowel habits have been regular and she has no concerns at today's visit. She reports that a chronic hemorrhoid issue remains stable and that her history of GERD is also in good control. Thus I find it reasonable to pursue repeat screening colonoscopy. Both prep and periprocedural expectations were discussed. All questions were answered. Plan: Plan will be to complete colonoscopy on first mutually agreeable date under local MAC. Pre-procedure prep discussed and paper instructions provided. She is advised to hold her fish oil supplement 1 week prior to the procedure. Patient is also made aware that she will need to have a steam train driver with her the day of the procedure. I have examined the patient and the H&P has been reviewed. There are no clinical changes since date of exam. Patient confirms that she held her fish oil for the last week and completed prep successfully. She denies any questions related to her planned procedure. Therefore we will proceed to the endoscopy suite for colonoscopy as scheduled.
--- NOTE | 2024-08-15 08:22 | PCM.POST.ANE ---
Anesthesia: Postop Eval I Current Vital Signs Temperature: 97.3 F Pulse Rate: 57 Blood Pressure: 101/48 Respiratory Rate: 18 Pulse Ox: 95 Oxygen Delivery Method: Room Air Assessment Airway patent: Yes Spontaneous unlabored respirations: Yes Mental status: Asleep nausea: No Vomiting: No Anesthesia Complication: No Fluid Hydration Crystalloid volume administer (ml): 600 Total IV fluid infused: 600 Progress Note Anesthesia document: Postop Eval 1 completed: Yes
--- NOTE | 2024-08-15 08:28 | OP.COLON_ITS ---
Patient Name: Ave Dial Procedure Date: 08/15/2024 6:14 AM Date of : 1950 Age: 74 Procedure: Colonoscopy Indications: Screening patient at increased risk: Family history of 1st-degree relative with colorectal cancer at age 60 years (or older) Providers: Srini Ojeda MD Referring MD: Srini Ojeda MD Medicines: See the Anesthesia note for documentation of the administered medications Patient Profile: Last Colonoscopy: 5 years ago. Complications: No immediate complications. Estimated blood loss: Minimal. Procedure: Pre-Anesthesia Assessment: - The heart rate, respiratory rate, oxygen saturations, blood pressure, adequacy of pulmonary ventilation, and response to care were monitored throughout the procedure. After I obtained informed consent, the scope was passed under direct vision. Throughout the procedure, the patient's blood pressure, pulse, and oxygen saturations were monitored continuously. The Colonoscope was introduced through the anus and advanced to the cecum, identified by the appendiceal orifice, ileocecal valve and palpation. The patient tolerated the procedure well. The quality of the bowel preparation was good. Scope In: 7:56:42 AM Scope Withdrawal Time 0 hours 11 minutes 32 seconds Scope Out: 8:13:43 AM Total Procedure Duration Time 0 hours 17 minutes 1 second Findings: A localized area of mild melanosis was found in the rectum. Biopsies were taken with a cold forceps for histology. Estimated blood loss was minimal. Internal hemorrhoids were found during retroflexion. The hemorrhoids were Grade I (internal hemorrhoids that do not prolapse). No biopsies or other specimens were collected for this exam. The exam was otherwise without abnormality on direct and retroflexion views. Impression: - Melanosis in the colon. Biopsied. - Internal hemorrhoids. No specimens collected. - The examination was otherwise normal on direct and retroflexion views. Recommendation: - Patient has a contact number available for emergencies. The signs and symptoms of potential delayed complications were discussed with the patient. Return to normal activities tomorrow. Written discharge instructions were provided to the patient. - Resume previous diet. - Discharge patient to home (via wheelchair). - Resume previous diet today. - No aspirin, ibuprofen, naproxen, or other non-steroidal anti-inflammatory drugs for 2 days after biopsy. - Await pathology results. - Repeat colonoscopy after studies are complete for surveillance based on pathology results. - Telephone my office for pathology results in 1 week. Procedure Code(s): --- Professional --- 84138, Colonoscopy, flexible; with biopsy, single or multiple Diagnosis Code(s): --- Professional --- Z80.0, Family history of malignant neoplasm of digestive organs K63.89, Other specified diseases of intestine K64.0, First degree hemorrhoids CPT copyright 2021 [employer]. All rights reserved. The codes documented in this report are preliminary and upon pump erector helper review may be revised to meet current compliance requirements. Srini Ojeda MD 08/15/2024 8:26:54 AM This report has been signed electronically. Number of Addenda: 0 Note Initiated On: 08/15/2024 6:14 AM
--- NOTE | 2024-08-15 08:28 | OP.CCLET_ITS ---
08/15/2024 Latrice Rizvi Md Re : Colonoscopy procedure for Ave Dial Dear Dmitri This procedure was performed on Thursday, August 15, 2024. My impressions and recommendations are as follows: Impressions : - Melanosis in the colon. Biopsied. - Internal hemorrhoids. No specimens collected. - The examination was otherwise normal on direct and retroflexion views. Recommendations : - Patient has a contact number available for emergencies. The signs and symptoms of potential delayed complications were discussed with the patient. Return to normal activities tomorrow. Written discharge instructions were provided to the patient. - Resume previous diet. - Discharge patient to home (via wheelchair). - Resume previous diet today. - No aspirin, ibuprofen, naproxen, or other non-steroidal anti-inflammatory drugs for 2 days after biopsy. - Await pathology results. - Repeat colonoscopy after studies are complete for surveillance based on pathology results. - Telephone my office for pathology results in 1 week. My findings are described in the full procedure note, which is enclosed. If I can be of further assistance, please feel free to contact me at Doctor phone number(s): , Work: . Sincerely, Srini Ojeda MD 08/15/2024 8:26:54 AM This report has been signed electronically.
--- NOTE | 2024-08-15 16:17 | PCM.POSTANE2 ---
Anesthesia Postop Eval I Sum Postop Eval Completion status Anesthesia document: Postop Eval 1 completed: Yes Anesthesia Postop Eval I Summary Anesthesia Postop Eval I Summary: Anesthesia Postop Eval I: Assessment Summary Airway patent Yes 08/15/24 08:23 [email or web address] Spontaneous unlabored Yes 08/15/24 08:23 [email or web address] respirations Mental status Asleep 08/15/24 08:23 [email or web address] nausea No 08/15/24 08:23 [email or web address] Vomiting No 08/15/24 08:23 [email or web address] Anesthesia Postop Eval I: Fluid Summary Crystalloid volume administer 600 08/15/24 08:23 [email or web address] (ml) Colloids volume administered ( ml) Blood Product volume administered (ml) Total IV fluid infused 600 08/15/24 08:23 [email or web address] Anesthesia Postop Eval I: Summary Notes Anesthesia Complication No 08/15/24 08:23 [email or web address] Anesthesia Complication Comment: Post-operative progress note Anesthesia: Postop Eval II Evaluation Mental status: Awake and Calm Pain Level: 0 nausea: No Vomiting: No Complications Anesthesia Complication: No
== END 2024-08-15 09:16 | disposition home or self-care (01) ==
LOC: EN 06:57 → AC 06:58
PROVIDERS: PCP Family Medicine; Referring Provider Surgery; Visit Provider Surgery
PROC: 0DJD8ZZ Inspection of Lower Intestinal Tract, Via Natural or Artificial Opening Endoscopic (ICD-10-PCS; CPT 45378; principal; 2024-08-15 07:25)
DX: Z12.11 Encounter for screening for malignant neoplasm of colon (principal); K64.0 First degree hemorrhoids; K63.89 Other specified diseases of intestine; K21.9 Gastro-esophageal reflux disease without esophagitis; E78.5 Hyperlipidemia, unspecified; G25.0 Essential tremor; Z80.0 Family history of malignant neoplasm of digestive organs; Z85.820 Personal history of malignant melanoma of skin; Z79.899 Other long term (current) drug therapy
CPT/HCPCS: 45380; 88305; J7120; J2405

== ENCOUNTER → 2024-12-08 | Outpatient (CLI) | payer MEDICARE, SELFPAY ==
[2024-12-08 07:54] LABS: Absolute Neutrophil Count 2.3 X10^3/uL (2.0-7.7); Basophil# 0.06 X10^3/uL; Basophil% 1.2 % (0-1); Eosinophil# 0.22 X10^3/uL; Eosinophils% 4.4 % (0-5); Hematocrit 43.2 % (37-47); Lymphocyte % 38.2 % (19-41); Mean Corp Hgb Conc 32.4 g/dL (32-36); Mean Corpuscular Hgb 29.7 pg (27.0-32.0); Mean Corpuscular Volume 91.7 fL (81-99); Mean Platelet Vol. 10.2 fl (6.2-12.0); Monocyte# 0.44 X10^3/uL; Monocyte% 8.9 % (0-10); NRBC Flagged by Analyzer 0 % (0-5); Neutrophil # 2.34 X10^3/uL (2.7-7.7); Neutrophil % 47.1 % (47-70); Platelet Count 221 K/mm3 (150-450); RBC Distribution Width CV 12.4 % (11.6-14.6); RBC Distribution Width SD 41.7 fl (35.1-43.9); Red Blood Count 4.71 M/mm3 (4.2-5.4)
[2024-12-08 08:19] LABS: ALB/GLOB Ratio 0.9 RATIO (0.9-2.4); AST(SGOT) 16 U/L (15-37); Alanine Aminotransfer ALT/SGPT 15 U/L (13-56); Albumin, Serum 3.4 g/dL (3.2-5.0); Alkaline Phosphatase 78 U/L (45-117); Anion Gap 3 (5-15); BUN 15 mg/dL (7-18); BUN/Creat Ratio 18.2 RATIO (10-20); Calcium,Total 9.3 mg/dL (8.5-10.1); Chloride 105 mmol/L (98-107); Cholesterol 243 mg/dL (200); Creatinine, Serum 0.82 mg/dL (0.55-1.02); EST Glomerular Filtration Rate 72 mL/min (>60); Est Glom Filt Rate - Afr Amer 87 mL/min (>60); Globulin 3.6 g/dL (2.2-4.2); Glucose 97 mg/dL (74-106); High Density Lipoprotein 62 mg/dL; Sodium Level 139 mmol/L (136-145); Triglycerides 95 mg/dL; Very Low Density Lipoprotein 19 mg/dL (5-40)
[2024-12-10 09:08] LABS: Vitamin D,25 Hydroxy 39.9 ng/mL
== END | disposition home or self-care (01) ==
LOC: LAB 07:32
PROVIDERS: PCP Family Medicine; Referring Provider Family Medicine; Visit Provider Family Medicine
DX: Z00.00 Encounter for general adult medical examination without abnormal findings (principal); E78.00 Pure hypercholesterolemia, unspecified; E55.9 Vitamin D deficiency, unspecified
CPT/HCPCS: 36415; 80053; 80061; 82306; 85025

== ENCOUNTER → 2024-12-14 | Outpatient (CLI) | payer MEDICARE, SELFPAY ==
--- NOTE | 2024-12-14 12:49 | RAD_ITS ---
INDICATION: Pain in left hip EXAMINATION/TECHNIQUE: X-RAY - XR Hip Unilateral with Pelvis when performed; 3 Views COMPARISON: FINDINGS: PELVIC BONES: No displaced fracture, destructive or sclerotic lesions. Note that overlapping bowel shadows may however obscure fine detail. Sacroiliac joints are unremarkable. No widening of the pubic symphysis. HIPS: The articular structures are unremarkable. No displaced fracture seen in this frontal view. SOFT TISSUES: No soft tissue swelling or gas. RAD/HIP, UNI W/ Pelvis 2-3 Views IMPRESSION: No evidence of displaced pelvic or hip fracture. Electronically Signed: Abran Monique DO at 19:54 EST Reading Location ID and State: [facility] / [place] Tel [phone], Service support ,
== END | disposition home or self-care (01) ==
LOC: MTRAD 12:49
PROVIDERS: PCP Family Medicine; Referring Provider Family Medicine; Visit Provider Family Medicine
DX: M25.552 Pain in left hip (principal)
CPT/HCPCS: 73502

== ENCOUNTER → 2025-01-10 | Outpatient (CLI) | payer MEDICARE, SELFPAY ==
--- NOTE | 2025-01-10 08:10 | BD_ITS ---
PROCEDURE: DEXA BONE DENSITY STUDY REASON FOR EXAM: F, age 74 y/o . Postmenopausal. TECHNIQUE: DEXA scan of the lumbar spine and both hips. COMPARISON: None. FINDINGS: T-SCORES Lumbar spine: Total bone mineral density measures 1.022 grams/centimeter squared. T-score measures 0.4 and Z-score measures 2.7. Left hip: Total bone mineral density measures 0.878 grams/centimeter squared. T-score measures -0.5 and Z-score measures 1.3. The left femoral neck bone mineral density measured 0.645 grams/centimeter squared. T-score measures -1.8 and Z-score measures 0.3. Right hip: Total bone mineral density of the right hip measures 0.942 grams/centimeter squared. T-score measured 0 and Z-score measures 1.9. Bone mineral density of the right femoral neck measures 0.711 grams/centimeter squared. T-score measures -1.2 and Z-score measures 0.9 Patient demonstrates normal bone mineral density of the lumbar spine and osteopenia of both hips. FRAX* Results: 10 Year Probability of Fracture: Hip Fracture(1): 13% Major Osteoporotic Fracture(2): 3.2% *FRAX is a trademark of the [employer]'s [place] [employer] Metabolic Bone Disease, World Health Organization (WHO) Collaborating [place]. 1-The 10-year probability of fracture may be lower than reported if the patient has received treatment. 2-Major Osteoporotic Fracture: Clinical Spine, Forearm, Hip or Shoulder. The T-scores are also available for review on the [facility] PACS or by accessing the [facility] electronic medical record. BD/Dexa Bone Density Study IMPRESSION: OSTEOPENIA. Reading Location: [id number]
== END | disposition home or self-care (01) ==
LOC: OPBD 08:08
PROVIDERS: PCP Family Medicine; Referring Provider Family Medicine; Visit Provider Family Medicine
DX: M85.80 Other specified disorders of bone density and structure, unspecified site (principal); Z78.0 Asymptomatic menopausal state
CPT/HCPCS: 77080

== ENCOUNTER → 2025-07-30 | Outpatient (CLI) | payer MEDICARE, SELFPAY ==
[2025-07-30 13:05] LABS: Mucous, Urine 0 SEEN /hpf (<or=2+); Red Blood Cells-Urine 0 SEEN /hpf (0-5)
[2025-07-30 13:15] LABS: Color, Urine Yellow (Yellow); Glucose, Dipstick Normal (Normal); Ketone-Dipstick Negative (Negative); Leukocyte Esterase-Dipstick 500 /ul (Negative); Nitrite-Dipstick Positive (Negative); Occult Blood-Urine 50 /ul (Negative); Protein-Dipstick 30 mg/dl (Negative); Specific Gravity, Urine 1.015 (1.002-1.030); Urine Bilirubin Dipstick Negative (Negative)
[2025-07-30 13:37] LABS: Squamous Epithelial Cells - UA 0-5 SEEN /hpf (5-10)
== END | disposition home or self-care (01) ==
LOC: LABSPEC 13:01
PROVIDERS: PCP Family Medicine; Referring Provider Nurse Practitioner Family; Visit Provider Nurse Practitioner Family
DX: N39.0 Urinary tract infection, site not specified (principal)
CPT/HCPCS: 81001; 87077; 87086; 87088; 87186

== ENCOUNTER 2025-09-04 07:15 | Outpatient (CLI) | payer MEDICARE, SELFPAY ==
[2025-09-04 10:27] LABS: Hematocrit 41.5 % (37-47); Hemoglobin 13.8 g/dL (12.0-15.0); Immature Granulocytes Count 0.010 X10^3/uL (0.0-0.0); Mean Corp Hgb Conc 33.3 g/dL (32-36); Mean Corpuscular Volume 90.2 fL (81-99); Mean Platelet Vol. 10.7 fl (6.2-12.0); NRBC Flagged by Analyzer 0 % (0-5); Platelet Count 209 K/mm3 (150-450); RBC Distribution Width CV 12.5 % (11.6-14.6); RBC Distribution Width SD 41.0 fl (35.1-43.9); Red Blood Count 4.60 M/mm3 (4.2-5.4); White Blood Count 5.3 K/mm3 (4.4-11.0)
[2025-09-04 11:12] LABS: AST(SGOT) 26 U/L (<=31); Alanine Aminotransfer ALT/SGPT 16 U/L (<=34); Albumin, Serum 4.2 g/dL (3.4-4.8); Alkaline Phosphatase 73 U/L (35-104); Anion Gap 8 (5-15); BUN 19 mg/dL (4-19); BUN/Creat Ratio 22.1 RATIO (10-20); Calcium,Total 9.8 mg/dL (7.6-11.0); Carbon Dioxide 29.3 mmol/L (21.0-32.0); Chloride 102 mmol/L (98-108); Cholesterol 229 mg/dL (<=200); Globulin 3.0 g/dL (2.2-4.2); Glucose 93 mg/dL (70-99); Low Density Lipoprotein Calc. 153 mg/dL; Potassium 4.3 mmol/L (3.3-5.1); Triglycerides 100 mg/dL; Very Low Density Lipoprotein 20 mg/dL (5-40); Vitamin D,25 Hydroxy 63.5 ng/mL (30-100); cholesterol:hdl ratio screen 4.07
== END 2025-09-04 23:59 | disposition home or self-care (01) ==
LOC: MTLAB 07:16
PROVIDERS: PCP Family Medicine; Referring Provider Family Medicine; Visit Provider Family Medicine
DX: E78.00 Pure hypercholesterolemia, unspecified (principal); E55.9 Vitamin D deficiency, unspecified
CPT/HCPCS: 36415; 80053; 80061; 82306; 85025